=== PATIENT | female | born 1965 | race Caucasian/White ===

== ENCOUNTER 2016-04-13 10:12 | Day surgery (SDC) | payer MEDICARE, OTHER ==
[~2016-04-13] VITALS: Ht 160 cm; Wt 60.0 kg
[~2016-04-13 10:12] MED LIST: ALLE24TA PO; DIAZ10TA PO; LEVE250 PO; NORC10TA2 PO; PROC10TA4 PO; PYRI60; SERT-132 PO; SOTA80TA PO
[2016-04-13] MEDS ORDERED: METO100T PO (10:36)
[2016-04-13 10:41] VITALS: BP 89/68; PULSE 72; RESP 20; TEMP 98.3; O2SAT 99
[2016-04-13] MEDS ORDERED: SODIUM CHLOR 0.9% 1000 ML INJ 1,000 ML IV SCH (11:00)
[2016-04-13 11:31] VITALS: BP 91/63
[2016-04-13] MEDS ORDERED: MIDAZOLAM HCL 2 MG/2 ML VIAL ONE (11:41)
--- NOTE | 2016-04-13 12:33 | PD.RAD ---
Post Procedure Progress Note Pre Procedure Diagnosis: (1) Clogged G-J tube (2) Gastroparesis Post Procedure Diagnosis: (1) Clogged G-J tube (2) Gastroparesis Procedure Date: Apr 13, 2016 Supervising Radiologist: Jarrett Alvarenga Anesthesia: Local, Conscious Sedation Plan of Activity Patient to Unit: [facility] Patient Condition: Good Additional Comments: Transgastric J tube exchanged without difficulty. New tube in good position OK for use. See PACS Report for procedural detail/treatment Jarrett Alvarenga MD Apr 13, 2016 12:33
[2016-04-13 12:45] VITALS: BP 96/67; PULSE 66; RESP 18; O2SAT 97
[2016-04-13] MEDS ORDERED: IOHEXOL 350 MG/ML 50 ML BTL (for RAD DIAG) G-TUBE ONE (12:49)
[2016-04-13] MEDS ORDERED: ONDANSETRON HCL 4 MG/2 ML VIAL ONE (12:49)
[2016-04-13 13:00] VITALS: BP 91/55; PULSE 50; RESP 18; O2SAT 97
[2016-04-13 13:30] VITALS: BP 90/60; PULSE 55; RESP 18; O2SAT 97
--- NOTE | 2016-04-13 14:19 | RADRPT ---
EXAM DATE/TIME: 04/13/2016 12:06 [facility] COMPARISON: CHANGE OF GJ-TUBE CATHETER, December 28, 2015, 14:26. INDICATIONS : Patient presents with gastroparesis in need of transgastric tube exchange for nutrition. 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 FLUORO TIME: 2.8 minutes SEDATION TIME: 15 minutes CONTRAST: 30 cc Omnipaque (iohexol) 350 MEDICATION(S): 1.) 1 mg midazolam (Versed) IV 2.) 100 mcg Fentanyl (Sublimaze) IV DEVICE(S): 1.) 23 Citizen Of [place] Transgastric tube PROCEDURE : 1. Fluoroscopically guided gastrojejunostomy tube exchange. 2. Conscious sedation with continuous EKG and oximetry monitoring. The risks, benefits and alternatives to the procedure were explained and verbal and written consent w as obtained. The site was prepped in sterile fashion. Full sterile technique was used, including ca p, mask, sterile gloves and gown and a large sterile sheet. Hand hygiene and 2% chlorhexidine and/or betadine/alcohol prep was utilized per protocol for cutaneous antisepsis. The skin and subcutaneous tissues were infiltrated with local anesthetic solution. With fluoroscopic guidance a guidewire was passed through the previous gastrojejunostomy tube and a f resh tube was placed over the guidewire. The balloon was inflated with appropriate volume of saline. Injection of positive contrast demonstrates good position of the gastric and jejunal lumens of the tube. Conscious sedation was performed with the prescribed dosages and duration as above. The patient anna ated the procedure well and there were no complications. EKG and oximetry remained stable throughout the procedure. The patient was sent to post anesthesia recovery in stable condition. CONCLUSION: Uncomplicated gastrojejunostomy tube exchange as above. Jarrett Alvarenga MD on April 13, 2016 at 14:17 Board Certified Radiologist. This report was verified electronically.
== END 2016-04-13 14:05 | disposition home or self-care (01) ==
LOC: HROP 10:12 → HRIP 10:13 → HROP 14:05
PROVIDERS: ATTEND Internal Medicine Gastroenterology
DX: Z43.1 Encounter for attention to gastrostomy (principal); K31.84 Gastroparesis; K21.9 Gastro-esophageal reflux disease without esophagitis; D64.9 Anemia, unspecified; M32.9 Systemic lupus erythematosus, unspecified; Z86.73 Personal history of transient ischemic attack (TIA), and cerebral infarction without residual deficits
CPT/HCPCS: 49452; 99152; C1769; C1874; J2250; J2405; J3010; J7030; Q9967

== ENCOUNTER 2016-07-05 07:25 | Day surgery (SDC) | payer MEDICARE, OTHER ==
[~2016-07-05] VITALS: Ht 160 cm; Wt 33.6 kg
[~2016-07-05 07:25] MED LIST changes: +METO100T PO
[2016-07-05 07:49] VITALS: BP 121/79; PULSE 96; RESP 20; TEMP 98.4; O2SAT 100
[2016-07-05] MEDS ORDERED: LEVE250T5 PO (08:01)
[2016-07-05] MEDS ORDERED: PROC10TA PO (08:01)
[2016-07-05] MEDS ORDERED: MEST60TA PO (08:01)
[2016-07-05] MEDS ORDERED: HYDR-3366 PO (08:01)
[2016-07-05] MEDS ORDERED: SOTA80TA PO (08:01)
[2016-07-05] MEDS ORDERED: DIAZ10TA PO (08:01)
[2016-07-05] MEDS ORDERED: FLUO-1 PO (08:01)
[2016-07-05] MEDS ORDERED: METO100T PO (08:01)
[2016-07-05] MEDS ORDERED: SODIUM CHLOR 0.9% 1000 ML INJ 1,000 ML IV SCH (08:30)
[2016-07-05] MEDS ORDERED: ONDANSETRON HCL 4 MG/2 ML VIAL ONE (08:39)
[2016-07-05] MEDS ORDERED: ONDANSETRON HCL 4 MG/2 ML VIAL IV PUSH ONE (08:45)
[2016-07-05 09:02] LABS: AUTOMATED NEUTROPHIL # 3.2 TH/MM3 (1.8-7.7); BASOPHIL % 0.9 % (0.0-2.0); EOSINOPHIL # 0.2 TH/MM3 (0-0.4); EOSINOPHIL % 3.2 % (0.0-4.0); HEMATOCRIT 32.1 % (35.0-46.0); HEMO FLAGS DIFF FINAL; LYMPH % 22.3 % (9.0-44.0); LYMPHOCYTE # 1.1 TH/MM3 (1.0-4.8); MEAN CELL VOLUME 96.4 FL (80.0-100.0); MEAN CORPUSCULAR HEMOGLOBIN 33.6 PG (27.0-34.0); MEAN CORPUSCULAR HGB CONC 34.8 % (32.0-36.0); MONO % 7.8 % (0.0-8.0); NEUT % 65.8 % (16.0-70.0); PLATELET COUNT 300 TH/MM3 (150-450); RED BLOOD COUNT 3.33 MIL/MM3 (4.00-5.30); WHITE BLOOD COUNT 4.8 TH/MM3 (4.0-11.0)
[2016-07-05 09:07] LABS: APTT (PATIENT) 29.6 SEC (24.3-30.1); PROTHROMBIN TIME - PATIENT 10.7 SEC (9.8-11.6)
--- NOTE | 2016-07-05 12:35 | RADRPT ---
EXAM DATE/TIME: 07/05/2016 00:00 [facility] COMPARISON : No previous studies available for comparison. INDICATIONS : Patient was scheduled for exchange of G-J tube, the tube funtions but has redness at skin site. OBJECTIVE: Temperature: Heart Rate: Blood Pressure: / Respiratory: Oximetry: PNEUMONIA VACCINE: HISTORY OF PRESENT ILLNESS: 50-year-old female presents with an indwelling gastrostomy tube. There is redness in the skin surroun ding the gastrostomy tube with tube otherwise functions well. The patient is under the impression mary carmen t there is a chronic skin infection. She performs daily wound care treatments. A request was made by the referring physician's office for tube replacement at her new site. PAST MEDICAL HISTORY : 1. Multiple sclerosis. 2. Gastroparesis. 3. Stroke. 4. Anemia 5. Myasthemia gravis 6. Lupus. 7. GERD 8. Asthma PAST SURGICAL HISTORY : 1. Pnacreatic surgery 2. Pacemaker 3. G-tube 4. 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 Codeine 2. Darvocet 3. Niacin 4. Penicillin IMAGING STUDIES: None ASSESSMENT: A new percutaneous gastrostomy tube would be difficult to place the lungs the patient has existing ga strostomy tube. The stomach has to be insufflated with air to allow placement of stay sutures. The st omach cannot be adequately distended with air since leakage of air would occur through the existing g astrostomy site. In order to place a new gastrostomy tube at a different site the existing gastrostomy tube has to be removed and the gastrostomy tract allowed to seal. PLAN: New gastrostomy tube can be placed a different site once existing gastrostomy tube can be removed. Consideration should be given to endoscopic placement of a new gastrostomy tube. Patient will schedule and one with her physician to discuss further intervention. TIME SPENT: 15 minutes Martin Marcos MD on July 05, 2016 at 12:27 Board Certified Radiologist. This report was verified electronically.
== END 2016-07-05 11:49 | disposition home or self-care (01) ==
LOC: HROP 07:25 → HRIP 07:25 → HROP 11:49
PROVIDERS: ATTEND Internal Medicine Gastroenterology
DX: Z93.4 Other artificial openings of gastrointestinal tract status (principal); K31.84 Gastroparesis; L08.9 Local infection of the skin and subcutaneous tissue, unspecified; M32.9 Systemic lupus erythematosus, unspecified; G35 Multiple sclerosis; K21.9 Gastro-esophageal reflux disease without esophagitis; J45.909 Unspecified asthma, uncomplicated; Z86.73 Personal history of transient ischemic attack (TIA), and cerebral infarction without residual deficits; Z88.0 Allergy status to penicillin
CPT/HCPCS: 85025; 85610; 85730; J7030; J2405